=== PATIENT | female | born 1990 | race African-American/Black ===

== ENCOUNTER 2017-02-11 09:33 | Emergency (ER) | payer OTHER ==
[~2017-02-11] VITALS: Ht 152.4 cm; Wt 80.0 kg
[~2017-02-11 09:33] MED LIST: CYAN1TAB21 SL; ORTH0.35 PO; ROBA750T PO; VITA500012 PO
[2017-02-11 09:35] VITALS: BP 138/80; PULSE 87; RESP 12; TEMP 98.5; O2SAT 99
[2017-02-11 09:53] VITALS: BP 117/62; PULSE 71; RESP 18; O2SAT 100
[2017-02-11 10:18] LABS: BACTERIA, URINE FEW /hpf; BILIRUBIN, URINE NEG (NEG); BLOOD, URINE MOD (NEG); GLUCOSE,URINE NEG (NEG); KETONE, URINE TRACE mg/dL (NEG); MUCUS URINE MANY /lpf (OCC); NITRITE,URINE NEG (NEG); PH, URINE 6.5 (5.0-8.5); SQUAMOUS EPITHELIAL CELL URINE 31 /hpf (0-5); URINE COLOR YELLOW (YELLW/STRAW); URINE LEUKOCYTE ESTERASE LARGE (NEG); WHITE BLOOD CELL CLUMPS MOD
[2017-02-11] MEDS ORDERED: SODIUM CHLOR 0.9% 1000 ML INJ 1,000 ML IV SCH (10:21)
--- NOTE | 2017-02-11 10:24 | PD ---
HPI Chief Complaint: Complaint Time Seen by Provider: 10:21 Travel History International Travel<30 days: No Contact w/Intl Traveler<30days: No Traveled to known affect area: No History of Present Illness HPI 26-year-old female patient presents to the ER with several days' history of urinary urgency, urinary frequency, nausea, and pelvic discomfort. She denies any fevers, vomiting, diarrhea, or other symptoms. She states that she is on oral control, last test in December was negative. Modifying Factors: None Associated Signs & Symptoms: Pelvic discomfort, urinary symptoms, nausea Risk Factors: None PFSH Past Medical History Medical History: Denies Significant Hx Diabetes: Yes (pre-diabetic ) Patient Takes Glucophage: No Diminished Hearing: No Tetanus Vaccination: Unknown Influenza Vaccination: Yes ?: Unknown LMP: 11/2016 : 1 Para: 1 Miscarriage: 0 : 0 Past Surgical History Surgical History: No Previous Surgery Social History Alcohol Use: No (DENIES) Tobacco Use: No (DENIES) Substance Use: No (DENIES) Allergies-Medications (Allergen,Severity, Reaction): Coded Allergies: metformin (Verified Allergy, Intermediate, Hives, 02/11/17) Reported Meds & Prescriptions Reported Meds & Active Scripts Active Vitamin B-12 Odt (Cyanocobalamin) 5,000 Mcg Tab 5,000 Mcg SL DAILY Ergocalciferol 50,000 Unit Cap 50,000 Units PO Q7D Ortho Micronor-35 (Norethindrone) 0.35 Mg Tab 1 Tab PO DAILY Robaxin (Methocarbamol) 750 Mg Tab 750 Mg PO QID PRN Review of Systems Except as stated in HPI: all other systems reviewed are Neg Physical Exam Narrative GENERAL: Well-developed young after [place] female patient currently not acute distress. Awake and oriented 3. SKIN: Focused skin assessment warm/dry. HEAD: Atraumatic. Normocephalic. EYES: Pupils equal and round. No scleral icterus. No injection or drainage. ENT: No nasal bleeding or discharge. Mucous membranes pink and moist. NECK: Trachea midline. No JVD. CARDIOVASCULAR: Regular rate and rhythm. No murmur appreciated. RESPIRATORY: No accessory muscle use. Clear to auscultation. Breath sounds equal bilaterally. GASTROINTESTINAL: Abdomen soft, mild pelvic and suprapubic tenderness without guarding or rebound, nondistended. Hepatic and splenic margins not palpable. MUSCULOSKELETAL: No obvious deformities. No clubbing. No cyanosis. No edema. NEUROLOGICAL: Awake and alert. No obvious cranial nerve deficits. Motor grossly within normal limits. Normal speech. PSYCHIATRIC: Appropriate mood and affect; insight and judgment normal. Data Data Last Documented VS Vital Signs Date Time Temp Pulse Resp B/P (MAP) Pulse Ox O2 Delivery O2 Flow Rate FiO2 02/11/17 09:53 71 18 117/62 (80) 100 02/11/17 09:35 98.5 Orders Orders Urinalysis - C+S If Indicated (02/11/17 09:51) Ed Urine Pregnancytest Poc (02/11/17 09:51) Urine Culture (02/11/17 10:00) Beta Hcg (Quant/Titer) (02/11/17 10:21) Complete Blood Count With Diff (02/11/17 10:21) Comprehensive Metabolic Panel (02/11/17 10:21) Lipase (02/11/17 10:21) Iv Access Insert/Monitor (02/11/17 10:21) Ecg Monitoring (02/11/17 10:21) Oximetry (02/11/17 10:21) Sodium Chlor 0.9% 1000 Ml Inj (Ns 1000 M (02/11/17 10:21) Sodium Chloride 0.9% Flush (Ns Flush) (02/11/17 10:30) Us Pelvis (Ques Pr/Ect)W Trans (02/11/17 12:12) Amoxicillin (Trimox) (02/11/17 14:00) Ed Discharge Order (02/11/17 13:56) Labs Laboratory Tests Test 02/11/17 10:00 02/11/17 11:05 02/11/17 12:10 Urine Color YELLOW Urine Turbidity CLOUDY Urine pH 6.5 Urine Specific [place] 1.027 Urine Protein 100 mg/dL Urine Glucose (UA) NEG mg/dL Urine Ketones TRACE mg/dL Urine Occult Blood MOD Urine Nitrite NEG Urine Bilirubin NEG Urine Urobilinogen LESS THAN 2.0 MG/DL Urine Leukocyte Esterase LARGE Urine RBC 165 /hpf Urine WBC /hpf Urine WBC Clumps MOD Urine Squamous Epithelial Cells 31 /hpf Urine Bacteria FEW /hpf Urine Mucus MANY /lpf Microscopic Urinalysis Comment CULTURE INDICATED White Blood Count 11.3 TH/MM3 Red Blood Count 4.84 MIL/MM3 Hemoglobin 12.1 GM/DL Hematocrit 37.0 % Mean Corpuscular Volume 76.5 FL Mean Corpuscular Hemoglobin 25.0 PG Mean Corpuscular Hemoglobin Concent 32.7 % Red Cell Distribution Width 15.7 % Platelet Count 262 TH/MM3 Mean Platelet Volume 10.3 FL Neutrophils (%) (Auto) 80.5 % Lymphocytes (%) (Auto) 14.5 % Monocytes (%) (Auto) 3.8 % Eosinophils (%) (Auto) 0.9 % Basophils (%) (Auto) 0.3 % Neutrophils # (Auto) 9.1 TH/MM3 Lymphocytes # (Auto) 1.6 TH/MM3 Monocytes # (Auto) 0.4 TH/MM3 Eosinophils # (Auto) 0.1 TH/MM3 Basophils # (Auto) 0.0 TH/MM3 CBC Comment DIFF FINAL Differential Comment Blood Urea Nitrogen 8 MG/DL Creatinine 0.97 MG/DL Random Glucose 101 MG/DL Total Protein 7.1 GM/DL Albumin 2.7 GM/DL Calcium Level 8.1 MG/DL Alkaline Phosphatase 46 U/L Aspartate Amino Transf (AST/SGOT) 10 U/L Alanine Aminotransferase (ALT/SGPT) 15 U/L Total Bilirubin 0.4 MG/DL Sodium Level 137 MEQ/L Potassium Level 3.5 MEQ/L Chloride Level 107 MEQ/L Carbon Dioxide Level 24.1 MEQ/L Anion Gap 6 MEQ/L Estimat Glomerular Filtration Rate 85 ML/MIN Lipase 128 U/L Human Chorionic Gonadotropin, Quant [id number] MIU/ML MDM Medical Decision Making Medical Screen Exam Complete: Yes Emergency Medical Condition: Yes Medical Record Reviewed: Yes Interpretation(s) Laboratory Tests Test 02/11/17 10:00 02/11/17 11:05 02/11/17 12:10 Urine Turbidity CLOUDY (CLEAR) Urine Protein 100 mg/dL (NEG-TRACE) Urine Ketones TRACE mg/dL (NEG) Urine Occult Blood MOD (NEG) Urine Leukocyte Esterase LARGE (NEG) Urine RBC 165 /hpf (0-3) Urine WBC Clumps MOD (NONE) Urine Bacteria FEW /hpf (NONE) Urine Mucus MANY /lpf (OCC) White Blood Count 11.3 TH/MM3 (4.0-11.0) Mean Corpuscular Volume 76.5 FL (80.0-100.0) Mean Corpuscular Hemoglobin 25.0 PG (27.0-34.0) Neutrophils (%) (Auto) 80.5 % (16.0-70.0) Neutrophils # (Auto) 9.1 TH/MM3 (1.8-7.7) Albumin 2.7 GM/DL (3.4-5.0) Calcium Level 8.1 MG/DL (8.5-10.1) Aspartate Amino Transf (AST/SGOT) 10 U/L (15-37) Estimat Glomerular Filtration Rate 85 ML/MIN (>89) Human Chorionic Gonadotropin, Quant [id number] MIU/ML (0-5) Last 24 hours Impressions Pelvis Ultrasound 02/11/17 1212 Signed Impressions: Service Date/Time: Saturday, February 11, 2017 12:49 - CONCLUSION: Possible intrauterine gestation however I would expect to see more with the beta of 10,000. Complex mass left ovary Moderate free fluid Careful observation is suggested. Cesar Valencia MD FACR Differential Diagnosis UTI versus abdominal pain and versus threatened AB versus ectopic Narrative Course She has hCG urine positive. An ultrasound was done for further evaluation. It shows what appears to be a early gestational sac in the uterus versus pseudo-sac , and there is a complex cyst in the left ovary. Case was discussed with Dr. Valencia and he is concerned because the hormone is more elevated than he would've expected. She does have a UTI which I plan to treat. Amoxicillin was ordered. At this point, case was discussed with Dr. Martins, [facility] ER physician, and she states that the patient should return in 2 days to the ER for hCG follow-up and ultrasound. Return for any worsening in bleeding, pain, and new symptoms as needed. Pelvic precautions. The plan was discussed with her and she states understanding. Diagnosis Primary Impression: UTI (urinary tract infection) Additional Impression: Abdominal pain in Additional Instructions: Return to the ER in 2 days to get reevaluated for hCG and ultrasound. Get antibiotics and started today as well. Med/Other Pt SpecificInfo: Prescription(s) given, Med Stopped (stop taking your oral contraceptive pills) Scripts Amoxicillin (Amoxicillin) 500 Mg Tab 500 MG PO TID for Infection for 7 Days, TAB 0 Refills Prov: Lobo Chin MD 02/11/17 Disposition: 01 DISCHARGE HOME Condition: Stable Lobo Chin MD Feb 11, 2017 10:24
[2017-02-11] MEDS ORDERED: SODIUM CHLORIDE 0.9% FLUSH 10 ML FLUSH IV FLUSH PRN (10:30)
[2017-02-11 11:17] LABS: AUTOMATED NEUTROPHIL # 9.1 TH/MM3 (1.8-7.7); BASOPHIL % 0.3 % (0.0-2.0); EOSINOPHIL # 0.1 TH/MM3 (0-0.4); EOSINOPHIL % 0.9 % (0.0-4.0); HEMOGLOBIN 12.1 GM/DL (11.6-15.3); LYMPH % 14.5 % (9.0-44.0); LYMPHOCYTE # 1.6 TH/MM3 (1.0-4.8); MEAN CELL VOLUME 76.5 FL (80.0-100.0); MEAN CORPUSCULAR HGB CONC 32.7 % (32.0-36.0); MEAN PLATELET VOLUME 10.3 FL (7.0-11.0); MONO % 3.8 % (0.0-8.0); MONOCYTE # 0.4 TH/MM3 (0-0.9); NEUT % 80.5 % (16.0-70.0); PLATELET COUNT 262 TH/MM3 (150-450); RED BLOOD COUNT 4.84 MIL/MM3 (4.00-5.30); RED CELL DISTRIBUTION WIDTH 15.7 % (11.6-17.2); WHITE BLOOD COUNT 11.3 TH/MM3 (4.0-11.0)
[2017-02-11 12:01] LABS: ALKALINE PHOSPHATASE 46 U/L (45-117); TOTAL BILIRUBIN ADULT 0.4 MG/DL (0.2-1.0); TOTAL PROTEIN 7.1 GM/DL (6.4-8.2)
[2017-02-11 12:41] LABS: ALBUMIN 2.7 GM/DL (3.4-5.0); AST (GOT) 10 U/L (15-37); BICARBONATE 24.1 MEQ/L (21.0-32.0); BLOOD UREA NITROGEN 8 MG/DL (7-18); CALCIUM 8.1 MG/DL (8.5-10.1); CHLORIDE 107 MEQ/L (98-107); CREATININE 0.97 MG/DL (0.50-1.00); GLOMERULAR FILTRATION RATE 85 ML/MIN (>89); GLUCOSE,RANDOM 101 MG/DL (74-106); LIPASE 128 U/L (73-393); SODIUM (NA) 137 MEQ/L (136-145)
[2017-02-11 12:42] LABS: ALT (GPT) 15 U/L (10-53)
--- NOTE | 2017-02-11 13:46 | RADRPT ---
EXAM DATE/TIME: 02/11/2017 12:49 [facility] COMPARISON: No previous studies available for comparison. INDICATIONS : Pelvic pain. LAB(S): Beta-hC MEDICAL HISTORY : . Gastroesophageal reflux disease. Diabetes. SURGICAL HISTORY : None. ENCOUNTER: Initial ACUITY: 1 day PAIN SCORE: 3/10 LOCATION: Bilateral pelvis. MEASUREMENTS: UTERUS: 9.2 x 5.7 x 4.9 cm ENDOMETRIAL STRIPE: 6 mm RIGHT OVARY: 4.8 x 3.4 x 2.3 cm LEFT OVARY: 4.2 x 4.1 x 2.5 cm FREE FLUID: Yes Cul-de-sac, left adnexa CROWN RUMP LENGTH: NOT VISUALIZED = WKS DAYS FHR: N/A BPM FINDINGS: UTERUS: Apparent gestational sac within the uterus no identifiable cardiac activity as yet. RIGHT OVARY: Ovary contains no mass or significant cystic lesion. LEFT OVARY: 2.1 cm complex mass left ovary MISCELLANEOUS: Moderate free fluid in the pelvis. CONCLUSION: Possible intrauterine gestation however I would expect to see more with the beta of 1 0,000. Complex mass left ovary Moderate free fluid Careful observation is suggested. Cesar Valencia MD FACR on February 11, 2017 at 13:39 Board Certified Radiologist. This report was verified electronically.
[2017-02-11] MEDS ORDERED: AMOXICILLIN (TRIHYDRATE) 500 MG CAP PO ONE (14:00)
[2017-02-11] MEDS ORDERED: AMOX500T PO (14:02)
== END 2017-02-11 14:14 | disposition home or self-care (01) ==
LOC: NEPC 09:33
DX: O23.40 Unspecified infection of urinary tract in pregnancy, unspecified trimester (principal); B95.7 Other staphylococcus as the cause of diseases classified elsewhere; Z3A.00 Weeks of gestation of pregnancy not specified
CPT/HCPCS: 76700; 76817; 80053; 81001; 83690; 84702; 84703; 85025; 86403; 87077; 87086; 87186; 96360; 99285; J7030

== ENCOUNTER 2017-02-13 11:58 | Emergency (ER) | payer OTHER ==
[~2017-02-13] VITALS: Ht 152.4 cm; Wt 80.9 kg
[~2017-02-13 11:58] MED LIST changes: +AMOX500T PO
[2017-02-13 12:02] VITALS: BP 138/74; PULSE 94; RESP 14; TEMP 98.2; O2SAT 98
--- NOTE | 2017-02-13 12:33 | PD ---
HPI Chief Complaint: Related Problem Time Seen by Provider: 12:12 Travel History International Travel<30 days: No Contact w/Intl Traveler<30days: No Traveled to known affect area: No History of Present Illness HPI 26-year-old female presents to the emergency department for reevaluation. Patient was seen in the emergency department 2 days ago for evaluation of pelvic discomfort, urinary symptoms. Patient was found to have a positive urine test. She had a pelvic ultrasound completed which showed a possible intrauterine gestation, however, I would expect the Joel with the beta of 10,000. Complex mass the left ovary moderate free fluid. Careful observation is suggested. The HEALTH NURSE ear physician was consult and who recommended repeat beta hCG and ultrasound in 2 days. The patient returns for this. She states she felt slightly lightheaded this morning, but this is resolved. She states that she still has some suprapubic abdominal tenderness which is the same as when she was here 2 days ago. She denies any other complaints. No vaginal bleeding. She states she had a negative test in December and is unsure how far along she has. No other complaints at this time. Moderate severity. No exacerbating or alleviating factors. She is taking antibiotic for UTI. PFSH Past Medical History Diabetes: Yes (pre-diabetic ) Patient Takes Glucophage: No Diminished Hearing: No ?: LMP: 12/07/2016 : 1 Para: 1 Miscarriage: 0 : 0 Past Surgical History Surgical History: No Previous Surgery Social History Alcohol Use: No (DENIES) Tobacco Use: No (DENIES) Substance Use: No (DENIES) Allergies-Medications (Allergen,Severity, Reaction): Coded Allergies: metformin (Verified Allergy, Intermediate, Hives, 02/13/17) Reported Meds & Prescriptions Reported Meds & Active Scripts Active Vitamin B-12 Odt (Cyanocobalamin) 5,000 Mcg Tab 5,000 Mcg SL DAILY Ergocalciferol 50,000 Unit Cap 50,000 Units PO Q7D Robaxin (Methocarbamol) 750 Mg Tab 750 Mg PO QID PRN Review of Systems Except as stated in HPI: all other systems reviewed are Neg Physical Exam Narrative GENERAL: Well-nourished, well-developed female patient, ambulatory. Afebrile. SKIN: Focused skin assessment warm/dry. HEAD: Normocephalic. Atraumatic EYES: No scleral icterus. No injection or drainage. NECK: Supple, trachea midline. No JVD or lymphadenopathy. CARDIOVASCULAR: Regular rate and rhythm without murmurs, gallops, or rubs. RESPIRATORY: Breath sounds equal bilaterally. No accessory muscle use. Lungs sounds are clear to auscultation GASTROINTESTINAL: Abdomen soft and nondistended. She has mild right suprapubic/ pelvic pain to palpation.. MUSCULOSKELETAL: No cyanosis, or edema. BACK: Nontender without obvious deformity. No CVA tenderness. Data Data Last Documented VS Vital Signs Date Time Temp Pulse Resp B/P (MAP) Pulse Ox O2 Delivery O2 Flow Rate FiO2 02/13/17 12:02 98.2 94 14 138/74 (95) 98 Orders Orders Beta Hcg (Quant/Titer) (02/13/17 12:19) Us Pelvis (Ques Preg/Ectopic) (02/13/17 ) Ed Discharge Order (02/13/17 15:03) Labs Laboratory Tests Test 02/13/17 12:30 Human Chorionic Gonadotropin, Quant [id number] MIU/ML [facility] Medical Decision Making Medical Screen Exam Complete: Yes Emergency Medical Condition: Yes Medical Record Reviewed: Yes Interpretation(s) Last Impressions Pelvis Ultrasound 02/13/17 0000 Signed Impressions: Service Date/Time: Monday, February 13, 2017 12:38 - CONCLUSION: Early IUP Maximilian Quiñones MD Differential Diagnosis Intrauterine versus ectopic versus UTI Narrative Course 26-year-old female presents to the emergency department for evaluation. She was instructed to return today for repeat beta hCG and ultrasound. She is currently being treated with amoxicillin for UTI. Microbiology results are still pending. Beta hCG is 15,467. Ultrasound shows early IUP Patient is instructed to follow-up with rn circulating for further evaluation. She verbalizes agreement. She is to continue antibiotic for UTI. The patient was discharged in stable condition with instructions, including return instructions and follow up instructions. Patient is requesting Zofran for nausea. She'll be given a short-term prescription. Diagnosis Primary Impression: First trimester Referrals: [facility] Patient Instructions: First Trimester (ED), General Instructions Additional Instructions: Follow-up with an rn circulating. Continue antibiotic for UTI. Return to the emergency department for any acute worsening of symptoms. Med/Other Pt SpecificInfo: Prescription(s) given, No Change to Meds Scripts Ondansetron Odt (Ondansetron Odt) 4 Mg Tab 4 MG SL Q6HR Y for Nausea/Vomiting, #10 TAB 0 Refills Prov: Carolyn Shell 02/13/17 Disposition: 01 DISCHARGE HOME Condition: Stable Carolyn Shell Feb 13, 2017 12:33
--- NOTE | 2017-02-13 14:44 | RADRPT ---
EXAM DATE/TIME: 02/13/2017 12:38 [facility] COMPARISON: No previous studies available for comparison. INDICATIONS : Pelvic pain. LAB(S): Beta-hC MEDICAL HISTORY : . Gastroesophageal reflux disease. Diabetes. SURGICAL HISTORY : None. ENCOUNTER: Subsequent ACUITY: 3 days PAIN SCORE: 7/10 LOCATION: Bilateral pelvis MEASUREMENTS: UTERUS: 9.4 x 7.5 x 4.7 cm ENDOMETRIAL STRIPE: 12 mm RIGHT OVARY: 3.7 x 2.8 x 2.5 cm LEFT OVARY: 4.2 x 3.1 x 2.0 cm FREE FLUID: No CROWN RUMP LENGTH: 0.23 cm = 5 WKS 5 DAYS FHR: 101 BPM FINDINGS: UTERUS: An intrauterine gestation is present with average estimated gestational sac diameter of 13.7 mm yield ing estimated gestational age of 5 weeks 4 days. A pole is present with cardiac activity detect ed at 101 beats per minute. RIGHT OVARY: Ovary contains no mass or significant cystic lesion. LEFT OVARY: Ovary contains no mass or significant cystic lesion. MISCELLANEOUS: No free fluid. CONCLUSION: Early IUP Maximilian Quiñones MD on February 13, 2017 at 14:37 Board Certified Radiologist. This report was verified electronically.
[2017-02-13] MEDS ORDERED: ONDA4TAB7 SL (15:11)
== END 2017-02-13 15:16 | disposition home or self-care (01) ==
LOC: NEPD 11:58
DX: O26.891 Other specified pregnancy related conditions, first trimester (principal); R10.2 Pelvic and perineal pain; O23.41 Unspecified infection of urinary tract in pregnancy, first trimester; Z3A.00 Weeks of gestation of pregnancy not specified
CPT/HCPCS: 76700; 84702; 99284

== ENCOUNTER 2017-02-24 16:15 | Emergency (ER) | payer OTHER ==
[~2017-02-24 16:15] MED LIST changes: -AMOX500T PO; +ONDA4TAB7 SL; -ORTH0.35 PO
[2017-02-24 16:17] VITALS: BP 129/73; PULSE 90; RESP 16; TEMP 98.7; O2SAT 99
--- NOTE | 2017-02-24 19:57 | PD ---
HPI Chief Complaint: Related Problem Time Seen by Provider: 17:06 Travel History International Travel<30 days: No Contact w/Intl Traveler<30days: No Traveled to known affect area: No History of Present Illness HPI 26-year-old woman who presents to the emergency department complaining of abdominal pain and bleeding. She is about 7 weeks' . She's been having cramping and passage of large blood clots. Today having some cramping and bloating as well. She is . Last menstrual period at the end of November. She had nausea but no vomiting. She otherwise had been feeling well. History Past Medical History Medical History: Denies Significant Hx Tetanus Vaccination: < 5 Years Influenza Vaccination: Yes LMP: 01/18/17 : 3 Para: 2 Past Surgical History Surgical History: No Previous Surgery Social History Alcohol Use: No (DENIES) Tobacco Use: No (DENIES) Allergies-Medications (Allergen,Severity, Reaction): Coded Allergies: metformin (Verified Allergy, Intermediate, Hives, 02/24/17) Reported Meds & Prescriptions Reported Meds & Active Scripts Active Vitamin B-12 Odt (Cyanocobalamin) 5,000 Mcg Tab 5,000 Mcg SL DAILY Ergocalciferol 50,000 Unit Cap 50,000 Units PO Q7D Robaxin (Methocarbamol) 750 Mg Tab 750 Mg PO QID PRN Review of Systems Except as stated in HPI: all other systems reviewed are Neg Physical Exam Narrative GENERAL: SKIN: Warm and dry. HEAD: Atraumatic. Normocephalic. EYES: Pupils equal and round. No scleral icterus. No injection or drainage. ENT: No nasal bleeding or discharge. Mucous membranes pink and moist. NECK: Trachea midline. No JVD. CARDIOVASCULAR: Regular rate and rhythm. RESPIRATORY: No accessory muscle use. Clear to auscultation. Breath sounds equal bilaterally. GASTROINTESTINAL: Abdomen soft, non-tender, nondistended. Hepatic and splenic margins not palpable. MUSCULOSKELETAL: Extremities without clubbing, cyanosis, or edema. No obvious deformities. NEUROLOGICAL: Awake and alert. No obvious cranial nerve deficits. Motor grossly within normal limits. Five out of 5 muscle strength in the arms and legs. Normal speech. PSYCHIATRIC: Appropriate mood and affect; insight and judgment normal. GENITOURINARY: Normal external genitalia without lesions or erythema. Vaginal vault without blood or drainage. Cervical os was closed without drainage. Some cervical irritation. No cervical motion tenderness. Uterus nontender and nonenlarged. Bilateral adnexa nontender without masses. Data Data Last Documented VS Vital Signs Date Time Temp Pulse Resp B/P (MAP) Pulse Ox O2 Delivery O2 Flow Rate FiO2 02/24/17 16:46 16 02/24/17 16:17 98.7 90 129/73 (91) 99 Orders Orders Beta Hcg (Quant/Titer) (02/24/17 17:16) Ed Urine Pregnancytest Poc (02/24/17 17:16) Ed Poc Ultrasound (02/24/17 ) Labs Laboratory Tests Test 02/24/17 17:30 Human Chorionic Gonadotropin, Quant [id number] MIU/ML MDM Medical Decision Making Medical Screen Exam Complete: Yes Emergency Medical Condition: Yes Interpretation(s) HCG [id number] Differential Diagnosis Threatened AB, , bleeding, cervicitis, UTI, other Narrative Course 26-year-old woman, with bleeding. Presently 7 weeks. Ultrasound confirms IUP. Exam unremarkable. Rh+. Recommend follow-up with OB. Procedures Procedure Narrative 20. Ultrasound: Focused transabdominal ultrasounds performed by me at the bedside. Ultrasound identified intrauterine . Measuring approximately 8 weeks 3 days. heart rate 164. 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 Return to emergency department worsening abdominal pain, vaginal bleeding more than 1 pad per hour, or any other new or worsening symptoms. Med/Other Pt SpecificInfo: No Change to Meds Disposition: 01 DISCHARGE HOME Condition: Stable Christian De La O MD Feb 24, 2017 19:57
== END 2017-02-24 20:07 | disposition home or self-care (01) ==
LOC: NEPD 16:15
DX: O20.0 Threatened abortion (principal); Z3A.08 8 weeks gestation of pregnancy; Z79.899 Other long term (current) drug therapy; Z34.91 Encounter for supervision of normal pregnancy, unspecified, first trimester
CPT/HCPCS: 84702; 99284

== ENCOUNTER 2017-03-10 14:43 | Emergency (ER) | payer OTHER ==
[~2017-03-10 14:43] MED LIST changes: -ONDA4TAB7 SL
[2017-03-10 14:44] VITALS: BP 154/61; PULSE 89; RESP 14; TEMP 98.2; O2SAT 99
--- NOTE | 2017-03-10 15:50 | PD ---
HPI . Miscarriage Chief Complaint: Related Problem Time Seen by Provider: 15:00 Travel History International Travel<30 days: No Contact w/Intl Traveler<30days: No Traveled to known affect area: No History of Present Illness HPI Patient presents stating that she is relatively certain that she has had a miscarriage. She states that she has been spotting throughout her . She is about 9 weeks along. She states that she developed cramping 4 days ago very similar to labor pains. She states that she has passed some blood and blood clots. She states that she called the nurse advocate with her insurance company and was told to present to the emergency department for further evaluation. She admits that she has not yet seen PLANT CONTROL AIDE. She reports that she's been seen here 4 times so for with this . She is Rh+. She is reporting some abdominal cramping which she rates at 5/10. No modifying factors. PFSH Past Medical History Diabetes: Yes (pre-diabetic ) Patient Takes Glucophage: No Diminished Hearing: No ?: Not LMP: NOVEMBER : 3 Para: 2 Miscarriage: 1 : 0 Social History Alcohol Use: No ( ) Tobacco Use: No ( ) Substance Use: No ( ) Allergies-Medications (Allergen,Severity, Reaction): Coded Allergies: metformin (Verified Allergy, Intermediate, Hives, 02/24/17) Reported Meds & Prescriptions Reported Meds & Active Scripts Active Vitamin B-12 Odt (Cyanocobalamin) 5,000 Mcg Tab 5,000 Mcg SL DAILY Ergocalciferol 50,000 Unit Cap 50,000 Units PO Q7D Robaxin (Methocarbamol) 750 Mg Tab 750 Mg PO QID PRN Review of Systems Except as stated in HPI: all other systems reviewed are Neg Physical Exam Narrative GENERAL: Awake and alert and in no acute distress. SKIN: warm/dry. HEAD: Normocephalic. Atraumatic. EYES: Pupils equal and round. No scleral icterus. No injection or drainage. ENT: No nasal bleeding or discharge. Mucous membranes pink and moist. NECK: Trachea midline. Full range of motion without pain.. CARDIOVASCULAR: Regular rate and rhythm. RESPIRATORY: No accessory muscle use. Clear to auscultation. Breath sounds equal bilaterally. GASTROINTESTINAL: Abdomen soft. Nontender. Bowel sounds present. Nondistended. MUSCULOSKELETAL: No obvious deformities. NEUROLOGICAL: Awake and alert. No obvious cranial nerve deficits. Motor grossly within normal limits. Normal speech. PSYCHIATRIC: Appropriate mood and affect; insight and judgment normal. Data Data Last Documented VS Vital Signs Date Time Temp Pulse Resp B/P (MAP) Pulse Ox O2 Delivery O2 Flow Rate FiO2 03/10/17 14:44 98.2 89 14 154/61 (92) 99 Orders Orders Beta Hcg (Quant/Titer) (03/10/17 15:06) Ed Poc Ultrasound (03/10/17 15:06) Orthostatic Vital Signs (03/10/17 15:48) Labs Laboratory Tests Test 03/10/17 15:17 Human Chorionic Gonadotropin, Quant [id number] MIU/ML [facility] Medical Decision Making Medical Screen Exam Complete: Yes Emergency Medical Condition: Yes Medical Record Reviewed: Yes (please see HPI for pertinent review of old records) Differential Diagnosis Differential diagnosis of vaginal bleeding includes but is not limited to dysfunctional uterine bleeding, normal menstrual cycle, ectopic , spontaneous AB, PID. Narrative Course This patient presents with vaginal bleeding in . She feels that she has probably had a miscarriage. Quantitative hCG on 02/24 was 47,000. Repeat quantitative hCG is pending today. She has a benign abdominal exam and is hemodynamically stable. HCG today is 1732 c/w miscarriage. Procedures Procedure Narrative Emergency Department Pelvic ultrasound was performed with patient consent. The curvilinear probe was used in the transverse and sagittal views within the suprapubic region revealing no intrauterine . Diagnosis Primary Impression: Miscarriage Patient Instructions: General Instructions, Miscarriage (DC) Additional Instructions: Check with your insurance company to get a list of PLANT CONTROL AIDE doctors available to you. Disposition: 01 DISCHARGE HOME Condition: Stable Cyn Lopez MD Mar 10, 2017 15:50
== END 2017-03-10 17:03 | disposition home or self-care (01) ==
LOC: NEPD 14:43
DX: O03.9 Complete or unspecified spontaneous abortion without complication (principal); E11.9 Type 2 diabetes mellitus without complications; Z88.8 Allergy status to other drugs, medicaments and biological substances; Z79.899 Other long term (current) drug therapy
CPT/HCPCS: 84702; 99283